=== PATIENT | male | born 1990 | race Caucasian/White ===

== ENCOUNTER 2017-01-31 19:48 | Emergency (ER) | payer SELFPAY ==
[2017-01-31 20:23] VITALS: BP 134/87
--- NOTE | 2017-01-31 21:11 | ED Physician Documentation ---
Skin Rash - HISTORIAN Historian: patient, spouse - HPI Stated Complaint: rash Chief Complaint: Skin Rash Additional Information: ringworm-dogs and cats in the house--they put them out today and disinfected the house today they are taking lotrimin Onset: days ago (4) Timing: still present Duration: persistent since Location: generalized Quality: itchy Context: Medication Exposure: other (lotrimin) Further Comments: yes (both pts have dondition) - ROS CONST: none CVS/RESP: none EYES/ENT: none MS/SKIN/LYMPH: none NEURO/PSYCH: none - PAST HX Past History: other (seasonal allergy) Surgeries/Procedures: No Immunizations: UTD Allergies/Adverse Reactions: Allergies Allergy/AdvReac Type Severity Reaction Status Date / Time tramadol Allergy Intermediate Hives Verified 01/31/17 20:22 Home Medications: Ambulatory Orders Medication Instructions Recorded NK [NK] 02/03/15 - SOCIAL HX Smoking History: non-smoker Alcohol Use: none Drug Use: none - FAMILY HX Family History: none - VITAL SIGNS Vital Signs: Vital Signs Temp Pulse Resp BP Pulse Ox 98.2 F 93 H 16 134/87 98 01/31/17 19:49 01/31/17 19:49 01/31/17 19:49 01/31/17 19:49 01/31/17 19:49 - REVIEWED ASSESSMENTS Nursing Assessment Reviewed: Yes Vitals Reviewed: Yes Skin Rash Physical Exam - EXAM General Appearance: mild distress Skin: warm,dry, skin rash. No: cyanotic, diaphoretic, pallid Location: generalized Character: asymmetric Extremities: nml ROM EENT: eyes nml inspection Respiratory: no resp distress, chest non-tender, breath sounds normal CVS: reg. rate & rhythm, heart sounds nml Abdomen: non-tender, no organomegaly Neuro/Psych: oriented x3, CN's nml as tested, motor nml, sensation nml, mood/ affect nml Discharge Clincal Impression: Ringworm of body Referrals: Primary Doctor,No [Primary Care Provider] - 2 Days Comments: home get dog and cat treated keep them out of the house house is disinfected Condition: Good Disposition: 01 HOME, SELF-CARE Decision to Admit: NO Decision Time: 21:15
== END 2017-01-31 21:17 | disposition home or self-care (01) ==
LOC: ED 19:48
DX: B35.4 Tinea corporis (principal)
CPT/HCPCS: 99283

== ENCOUNTER 2017-05-23 18:43 | Emergency (ER) | payer SELFPAY ==
--- NOTE | 2017-05-23 18:53 | ED Physician Documentation ---
Ear Complaints - HISTORIAN Historian: patient - HPI Stated Complaint: ear clogged Chief Complaint: Ear Complaints Timing: still present Location of Pain: L ear Severity: mild Associated Symptoms: hearing loss. denies: fever, chills, sharp pain, dull pain Further Comments: yes (He states feels like something is moving in the ear. Has) - ROS CONST: no problems - PAST HX Past History: none Immunizations: UTD - SOCIAL HX Smoking History: non-smoker Alcohol Use: none Drug Use: none - FAMILY HX Family History: No - VITAL SIGNS Vital Signs: Vital Signs Temp Pulse Resp BP Pulse Ox 134/87 01/31/17 21:17 - REVIEWED ASSESSMENTS Nursing Assessment Reviewed: Yes Vitals Reviewed: Yes <Eun Betancourt - Last Filed: 05/23/17 18:51> - VITAL SIGNS Vital Signs: Vital Signs Temp Pulse Resp BP Pulse Ox 96 H 18 144/82 96 05/23/17 18:45 05/23/17 18:45 05/23/17 18:45 05/23/17 18:45 <Dre Schuler - Last Filed: 05/23/17 23:06> - PAST HX Allergies/Adverse Reactions: Allergies Allergy/AdvReac Type Severity Reaction Status Date / Time tramadol Allergy Intermediate Hives Verified 05/23/17 19:13 Home Medications: Ambulatory Orders Medication Instructions Recorded NK [NK] 02/03/15 Progress - Progress Progress: ears irrigated b/l after Debrox drops. Hearing restored. L ear without cerumen after irrigation. R ear has some cerumen remaining after irrigation x 3. Pt feels issue is resolved and may repeat irrigations at home as needed. <Dre Schuler - Last Filed: 05/23/17 23:06> ED Results Lab/Radiology - Orders Orders: ED Orders Category Date Time Status Carbamide Peroxide [Debrox] Med 05/23/17 19:06 Discontinued 225 drop OT .STK-MED ONE <Dre Schuler - Last Filed: 05/23/17 23:06> Ear Complaint Physical Exam - EXAM General Appearance: no acute distress, alert Ear: total cerumen impaction Eye: eyes nml inspection Resp/CVS: no resp. distress Skin: nml color Neuro/Psych: oriented x3, mood/affect nml <Eun Betancourt - Last Filed: 05/23/17 18:51> Discharge Decision to Admit: NO <Eun Betancourt - Last Filed: 05/23/17 18:51> Decision to Admit: NO Decision Time: 20:00 <Dre Schuler - Last Filed: 05/23/17 23:06> Clincal Impression: Excessive cerumen in both ear canals Referrals: Primary Doctor,No [Primary Care Provider] - 2 Days Condition: Stable Disposition: 01 HOME, SELF-CARE
[2017-05-23] MEDS: CARBAMIDE PEROXIDE OTIC SUSP OT ONE ×2 (19:20→22:38)
[2017-05-23 22:45] VITALS: BP 120/76
== END 2017-05-23 20:05 | disposition home or self-care (01) ==
LOC: ED 18:43
DX: H61.23 Impacted cerumen, bilateral (principal)
CPT/HCPCS: 99282